=== PATIENT | male | born 1990 | race Asian ===

== ENCOUNTER 2023-09-19 12:07 | Outpatient (CLI) | payer MEDICAID, OTHER ==
--- NOTE | 2023-09-19 12:51 | XRAY Report ---
PROCEDURE: Knee 1-2V RT INDICATIONS: KNEE EFFUSION, RIGHT TECHNIQUE: 2 views of the knee(s) were acquired. COMPARISON: None. FINDINGS: Bones: No fractures or dislocations. No suspicious bony lesions. Soft tissues: Moderate knee joint effusion. No suspicious soft tissue calcifications or masses. IMPRESSION: No displaced fractures. Moderate joint effusion. Internal derangement not excluded. Reviewed by: Gilles Gandara MD on 09/19/2023 12:50 PM PDT Approved by: Gilles Gandara MD on 09/19/2023 12:50 PM PDT Station ID: [id number]
== END 2023-09-19 23:59 | disposition home or self-care (01) ==
LOC: DI.N 12:07
PROVIDERS: ATTEND Physician Assistant Medical
DX: M25.461 Effusion, right knee (principal)